=== PATIENT | female | born 1970 | race American Indian/Alaskan Native ===

== ENCOUNTER 2016-05-02 08:00 | Inpatient (IN) | payer OTHER ==
--- NOTE | 2016-05-04 11:49 | HP ---
PREOPERATIVE HISTORY AND PHYSICAL: DATE OF ADMISSION: 05/16/16 This patient is scheduled for AA admission by Dr. Mercado on 05/16/16. DATE OF EXAM: 05/03/16 ATTENDING SURGEON: Dr. Aleksey Mercado (dictated by Ngoc Amin NP). CHIEF COMPLAINT: Morbid obesity. HISTORY OF PRESENT ILLNESS: The patient is a 45-year-old female with a body mass index of 40.3. 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 She lost 13 pounds during the 6 months medically supervised weight loss and has completed all of the necessary preoperative diagnostic evaluations and testing and has been deemed an appropriate candidate by Dr. Mercado to undergo laparoscopic sleeve gastrectomy. Dr. Mercado described the nature of the surgical procedure, the expected results of the surgery, the relevant risks, benefits, and alternatives, and today, I reviewed the typical postoperative care and recovery including compliance with the postoperative stages of the diet, exercise, vitamin and mineral supplementation and followup visits. The patient has had a chance to ask questions and stated that she understands the information and is satisfied with the answers given to her questions. She will sign surgical consent on the day of surgery. 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 OB HISTORY: 2, para 2. Her menstrual periods are regular and she is status post tubal ligation. MEDICATIONS: 1. Hydrochlorothiazide 25 mg p.o. daily in the morning. 2. Tramadol ER 100 mg p.o. daily in the morning. 3. Tramadol 50 mg 1 table q.6 p.r.n. breakthrough pain. 4. Losartan 25 mg q.i.d. she typically takes one in the morning, one at noon, one at 3 p.m. and one at bedtime. 5. Simvastatin 20 mg p.o. daily. 6. Cymbalta 90 mg p.o. daily in the evening. 7. Buspirone 10 mg daily at 3 p.m. 8. Diltiazem ER 180 mg daily at bedtime. 9. Metaxalone 800 mg p.r.n. back spasms. 10. Tylenol 500 mg p.r.n. pain. She avoids NSAIDs secondary to the Fabry disease. ALLERGIES: LISINOPRIL caused cough, LYRICA caused temporary memory loss, BEEF HEPARIN caused hives, but she can tolerate pork heparin; NONSTEROIDAL ANTI- INFLAMMATORY DRUGS are avoided secondary to the Fabry disease, but she can use Tylenol. FAMILY HISTORY: Mother age 53 with breast cancer and was described as obese; father age 61 described as obese with heart disease. She has 2 brothers both described as normal weight, one brother has rheumatoid arthritis with severe associated deformities; she has 2 sisters both described as obese. No known anesthesia complications, bleeding tendencies or clotting disorders; she states that her family members will undergo genetic testing for Fabry disease. SOCIAL HISTORY: She is and has 2 biological children ages 26 and 21; she adopted 2 great nieces and 1 great nephew, the children are 7, 5, and 2.5; she is a axym-uc-axew mom; she has never been a smoker and rarely drinks alcohol. 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 Santillan for Cardiology and has been cleared to proceed with the bariatric surgery, please see Dr. Santillan's attached consultation note for any other details. Constitutional: She reports fatigue and chronic back pain. Cardiovascular: She denies any chest pain. She denies any history of deep vein thrombosis; she had a pulmonary embolism 21 years ago possibly related to oral contraceptives; she underwent a stress echocardiogram in 2016, which was negative for ischemia; she has never had any unusual bleeding and has never received a blood transfusion. Respiratory: She has sleep apnea and uses APAP. She denies any previous anesthesia complications. Gastrointestinal: She has a history of acid reflux and underwent upper GI series, which did reveal a small amount of acid reflux, but no esophagitis; gallbladder ultrasound was negative for cholelithiasis and positive for hepatic steatosis. 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 Musculoskeletal: She has chronic back pain and sciatic pain and pain in her fingertips and toes and cold feet. She states that physical limitations related to her obesity include back pain and hip pain. She is followed at [facility] for Worker's Comp injury associated with the chronic back pain and her tramadol is prescribed through the pain clinic. She is followed by Dr. Jacqui Cosme, who is a genetic specialist in [place] and is also followed by a patient advocate for her Fabrazyme infusions; the patient advocate works with [employer]. Her infusions are administered at [facility] every 2 weeks. PHYSICAL EXAMINATION GENERAL SURVEY: The patient is a 45-year-old obese female in no acute distress. VITAL SIGNS: Height 64 inches, weight 235 pounds, body mass index 40.3, blood pressure 134/78, pulse 72 and regular, respiratory rate 16, temperature 97.9, tympanic. HEENT: Benign. NECK: Supple. No cervical lymphadenopathy. No carotid bruits. No thyromegaly. LUNGS: Breath sounds bilaterally clear and equal. HEART: Regular rate and rhythm. No murmurs or rubs appreciated. ABDOMEN: Active bowel sounds. Obese, soft, nondistended, and nontender throughout. No obvious masses, organomegaly, or evidence of ventral hernia. No skin fold rashes. PELVIC AND RECTAL: Exams deferred. BACK: No CVA tenderness. EXTREMITIES: Warm without edema or skin ulceration. NEUROLOGIC: Alert and oriented x3, steady gait. SKIN: Warm, dry, intact. IMPRESSION: 1. Morbid obesity. 2. Sleep apnea requiring to use of APAP. 3. Fabry's disease. 4. Hypertension. 5. Hypercholesterolemia. 6. Chronic back pain. PLAN: AA admission to Dr. Mercado' service for laparoscopic sleeve gastrectomy on 05/16/16. APOLINAR AMIN NP CC: Dr. [facility]; [facility] in [place], [place]; Dr. Santillan* [id number]/CPS #: [id number] [facility]OSPITALJessie
[2016-05-16] MEDS ORDERED: Famotidine IV* 10 MG/ML 2 ML (20 mg) IV ONE (06:00)
[2016-05-16] MEDS ORDERED: Buffered Lidocaine 1% SYRIN* 3 ML/SYR SYRINGE INTRADERM ONE (06:00)
[2016-05-16] MEDS ORDERED: Famotidine IV* 10 MG/ML 2 ML (20 mg) ONE (07:11)
[2016-05-16] MEDS ORDERED: ceFAZolin 1 GM in Dextrose (*) 1 GM/50 ML BAG IVPB ONE (07:11)
[2016-05-16] MEDS ORDERED: ceFAZolin 2 GM PREMIX(*) 2 GM/50 ML BAG IVPB ONE (07:12)
[2016-05-16] MEDS ORDERED: Clindamycin 900 MG IVPREMIX(* 900 MG/50 ML SDV IV ONE (07:12)
[2016-05-16] MEDS ORDERED: Bupivacaine 0.5% SDV PF* 30 ML VIAL ONE (07:33)
[2016-05-16] MEDS ORDERED: Bupivacaine 0.5% W/EPI SDV* 30 ML VIAL ONE (07:34)
[2016-05-16] MEDS ORDERED: Heparin VIAL(*) 5000 UNITS/ML VIAL (FIVE THOUSAND) ONE (07:43)
[2016-05-16] MEDS ORDERED: Atracurium* 10 MG/ML 10 ML VIAL ONE (08:32)
[2016-05-16] MEDS ORDERED: Morphine INJ* 10 MG/ML 1 ML SYRINGE ONE ×2 (08:32→11:28)
[2016-05-16] MEDS ORDERED: fentaNYL* 50 MCG/ML 2 ML VIAL (100 MCG VIAL) ONE ×2 (08:32→11:28)
[2016-05-16] MEDS ORDERED: KETAMINE HCL* 50 MG/ML 10 ML VIAL ONE (08:33)
[2016-05-16] MEDS ORDERED: Midazolam* 1 MG/ML 5 ML VIAL (5 MG) ONE (08:33)
[2016-05-16 08:34] LABS: Hematocrit 42 % (35-47); Hemoglobin 14.3 g/dl (12.0-16.0); Mean Corpuscular HGB Conc 34 g/dl (31-36); Mean Corpuscular Hemoglobin 27 pg (27-31); Mean Corpuscular Volume 80 fL (80-97); Mean Platelet Volume 11 um3 (7.4-10.4); Red Cell Distribution Width 14 % (10.5-15); White Blood Count 10.1 10^3/ul (3.5-10.8)
[2016-05-16] MEDS ORDERED: PROCHLORPERAZINE INJ 5 MG/ML 2 ML VIAL IV PRN (10:16)
[2016-05-16] MEDS ORDERED: Lidocaine 2% PF* 5 ML VIAL ONE (10:26)
[2016-05-16] MEDS ORDERED: Propofol* 10 MG/ML 20 ML BTL IV PUSH ONE (10:26)
[2016-05-16] MEDS ORDERED: Glycopyrrolate IV* 0.2 MG/ML 1 ML VIAL ONE (10:26)
[2016-05-16] MEDS ORDERED: Ondansetron INJ* 2 MG/ML VIAL ONE (10:26)
[2016-05-16] MEDS ORDERED: Dexamethasone IV* 4 MG/ML 1 ML (4 MG) ONE (10:26)
[2016-05-16] MEDS ORDERED: Neostigmine Methylsulfate* 2 MG/2 ML SYRINGE ONE (10:26)
[2016-05-16] MEDS ORDERED: Scopolamine 1.5 mg* PATCH ONE (10:27)
[2016-05-16] MEDS ORDERED: Phenylephrine INJ* 10 MG/ML 1 ML VIAL (10 MG) ONE (10:27)
[2016-05-16] MEDS ORDERED: HYDROmorphone* 1 MG/ML 1 ML SYR IV PRN (11:10)
[2016-05-16] MEDS ORDERED: Ondansetron INJ* 2 MG/ML VIAL IV PRN (11:10)
[2016-05-16] MEDS ORDERED: Acetaminophen ADULT LIQ* 650 MG/20.3 ML UDC PO PRN (11:10)
--- NOTE | 2016-05-16 11:26 | PN ---
Progress Note - Progress Note Note: Brief Operative Note: Pre and postop Dx: Morbid obesity Procedure: Laparoscopic sleeve gastrectomy Anesthesia: GET Surgeon: Rogelio Asst: LUMA Owusu EBL: none Fluids: 1700 ml RL Drains: none Specimen: portion stomach Findings: dictated
[2016-05-16] MEDS ORDERED: Ketorolac INJ* 30 MG/ML 1 ML VIAL ONE (11:28)
[2016-05-16] MEDS: Ketorolac INJ* 30 MG/ML 1 ML VIAL IV PRN ×2 (11:33→18:06)
[2016-05-16] MEDS: fentaNYL* 50 MCG/ML 2 ML VIAL (100 MCG VIAL) IV PRN ×2 (11:34→11:53)
[2016-05-16] MEDS: Morphine INJ* 2 MG/ML 1 ML SYRINGE IV PRN ×2 (11:39→11:54)
[2016-05-16] MEDS ORDERED: Metoprolol Tartrate IV* 1 MG/ML 5 ML VIAL IV PRN (13:31)
[2016-05-16] MEDS ORDERED: Metoprolol Tartrate IV* 1 MG/ML 5 ML VIAL ONE (14:29)
[2016-05-16] MEDS ORDERED: HYDROmorphone* 1 MG/ML 1 ML SYR ONE (14:29)
[2016-05-16] MEDS: HYDROmorphone* 1 MG/ML 1 ML SYR IV PRN ×2 (14:34→21:18)
[2016-05-16] MEDS: Heparin VIAL(*) 5000 UNITS/ML VIAL (FIVE THOUSAND) SUBCUT SCH (21:18)
[2016-05-17] MEDS: FAMOTIDINE IVPB SCH ×2 (02:24→14:05)
[2016-05-17] MEDS: NS 0.9% IVPB SCH ×2 (02:24→14:05)
[2016-05-17] MEDS: HYDROmorphone* 1 MG/ML 1 ML SYR IV PRN ×4 (02:28→21:28)
[2016-05-17] MEDS: diPHENhydraMINE IV* 50 MG/ML 1 ml VIAL (BENADRYL) SLOW PUSH PRN (04:16)
[2016-05-17] MEDS: Heparin VIAL(*) 5000 UNITS/ML VIAL (FIVE THOUSAND) SUBCUT SCH ×3 (05:24→21:28)
--- NOTE | 2016-05-17 10:33 | PN ---
Progress Note - Progress Note SOAP: Subjective: Started drinking and feels good. Pain in RUQ incision is well controlled. No N /V/GERD. Objective: Vital Signs Temp 98.1 F 05/17/16 08:08 Pulse 83 05/17/16 08:08 Resp 14 05/17/16 10:00 BP 147/75 05/17/16 08:08 Pulse Ox 97 05/17/16 10:00 NAD Abd: dressings c/d/i; soft; ND; mild tenderness. Intake & Output 05/16/16 05/17/16 05/17/16 18:59 06:59 18:59 Intake Total 1700 2106 638 Output Total 325 300 Balance 1700 1781 338 Weight 226 lb 9.6 oz Intake: IV Fluids 1700 2054 638 LR 2054 585 PB - FAMOTIDINE 53 lr 1700 IVPB 52 PB - FAMOTIDINE 52 Oral 0 Output: Urine 325 300 Other: Estimated Void Medium # Voids 1 Assessment: POD#1 s/p LSG. Doing well. Plan: Cont clears. Ambulate. Likely home in AM.
[2016-05-17] MEDS: D5W 1/2 NS KCl 20 Meq 1000 ML* 1,000 ML IV SCH ×2 (11:09→17:53)
[2016-05-17] MEDS: Ketorolac INJ* 30 MG/ML 1 ML VIAL IV PRN (14:02)
[2016-05-17] MEDS: HYDROcodone/ACET. 7.5/325 LIQ* 15 ML UDC PO PRN (17:54)
[2016-05-18] MEDS: D5W 1/2 NS KCl 20 Meq 1000 ML* 1,000 ML IV SCH ×2 (00:22→07:17)
[2016-05-18] MEDS: HYDROmorphone* 1 MG/ML 1 ML SYR IV PRN (01:35)
[2016-05-18] MEDS: diPHENhydraMINE IV* 50 MG/ML 1 ml VIAL (BENADRYL) SLOW PUSH PRN (02:23)
[2016-05-18] MEDS: NS 0.9% IVPB SCH ×2 (02:25→14:04)
[2016-05-18] MEDS: FAMOTIDINE IVPB SCH ×2 (02:25→14:04)
[2016-05-18] MEDS: Heparin VIAL(*) 5000 UNITS/ML VIAL (FIVE THOUSAND) SUBCUT SCH ×2 (05:56→14:04)
[2016-05-18] MEDS: HYDROcodone/ACET. 7.5/325 LIQ* 15 ML UDC PO PRN ×2 (07:10→14:02)
[2016-05-18] MEDS: Ketorolac INJ* 30 MG/ML 1 ML VIAL IV PRN (07:12)
--- NOTE | 2016-05-18 09:30 | PN ---
Progress Note - Progress Note SOAP: Subjective: She felt more pain last night. She is taking po meds and it helps. She had some nausea, no vomiting. She has some GERD. Only taking 3 oz/hr po. Knows she needs to take more. Passing flatus. Voiding well. Objective: Vital Signs Temp 97.7 F 05/18/16 07:36 Pulse 65 05/18/16 07:36 Resp 16 05/18/16 07:36 BP 150/82 05/18/16 07:36 Pulse Ox 97 05/18/16 07:36 NAD Abd: incis c/d/i; no erythema. Soft, tender in RUQ incis. Intake & Output 05/17/16 05/18/16 05/18/16 18:59 06:59 18:59 Intake Total 2173 1071 1054 Output Total 700 625 Balance 4879 595 4041 Intake: IV Fluids 6279 519 6066 D5W 1/2 NS 20 meq KCL 951 998 LR 1735 PB - FAMOTIDINE 108 56 Oral 330 120 Output: Urine 700 625 Assessment: POD#2 s/p LSG. Doing well. Plan: Increase po as tolerated. D/c capnography. Shower. Possible d/c later today or AM depending on progress.
[2016-05-18] MEDS ORDERED: DULoxetine DR CAP* 30 MG CAP.DR PO SCH (10:00)
[2016-05-18] MEDS: Losartan TAB* 25 MG PO SCH ×2 (13:21→17:06)
[2016-05-18] MEDS ORDERED: busPIRone TAB* 10 MG PO SCH (14:00)
--- NOTE | 2016-05-18 15:42 | SURGPN ---
Subjective - Introduction -: Discharge summary will be dictated. Patient will be discharge to home this evening. Doing well, no complaints, ready to go home. - Medications -: Active Medications Generic Name Dose Route Start Last Admin Trade Name Freq PRN Reason Stop Dose Admin Acetaminophen 650 mg 05/16/16 11:10 Tylenol Adult Liq* PO Q6H PRN Temp > 101 F Or Mild Pain Hydrocodone Bitart/Acetaminophen 15 ml 05/17/16 17:03 05/18/16 14:02 Nortab 7.5/325 Liq* PO 15 ml Q6H PRN Administration PAIN Buspirone HCl 10 mg 05/18/16 14:00 05/18/16 13:22 Buspar Tab* PO 10 mg TID CORINNE Administration Diphenhydramine HCl 25 mg 05/16/16 11:10 05/18/16 02:23 Benadryl Iv* SLOW PUSH 25 mg Q6H PRN Administration ITCHING Duloxetine HCl 90 mg 05/18/16 10:00 05/18/16 10:31 Cymbalta Cap* PO 90 mg DAILY CORINNE Administration Heparin Sodium (Porcine) 5,000 units 05/16/16 22:00 05/18/16 14:04 Heparin Vial(*) SUBCUT 5,000 units Q8HR CORINNE Administration Hydromorphone HCl 0.5 mg 05/16/16 11:10 Dilaudid Iv* IV Q3H PRN PAIN - MODERATE Hydromorphone HCl 1 mg 05/16/16 11:10 05/18/16 01:35 Dilaudid Iv* IV 1 mg Q3H PRN Administration PAIN - SEVERE Famotidine 20 mg/ Sodium 52 mls @ 208 mls/hr 05/17/16 02:30 05/18/16 14:04 Chloride IVPB 208 mls/hr 0230,1430 CORINNE Administration Potassium Chloride/Dextrose 1,000 mls @ 150 mls/hr 05/17/16 11:15 05/18/16 07 :17 D5w 1/2 Ns Kcl 20 Meq 1000 Ml* IV 150 mls/hr .PER RATE CORINNE Administration Losartan Potassium 100 mg 05/18/16 13:00 05/18/16 13:21 Cozaar Tab* PO 25 mg QID CORINNE Administration Metoprolol Tartrate 5 mg 05/16/16 13:31 05/16/16 14:34 Lopressor Iv* IV 5 mg Q6H PRN Administration BP Sys>150 or hellen>90 Ondansetron HCl 4 mg 05/16/16 11:10 05/16/16 18:06 Zofran Inj* IV 4 mg Q6H PRN Administration NAUSEA/VOMITING Pharmacy Profile Note 1 note 05/19/16 10:17 Scopolomine Patch Remove* PATCH OFF 05/19/16 10:18 Q72H ONE Objective - Objective -: Awake and alert, in NAD. - Intake and Output -: Intake & Output 05/16/16 05/17/16 05/18/16 05/19/16 06:59 06:59 06:59 06:59 Intake Total 3806 3244 2394 Output Total 325 1325 800 Balance 3481 1919 1594 Weight 226 lb 9.6 oz Intake: IV Fluids 3754 2794 2004 D5W 1/2 NS 20 meq KCL 951 1948 LR 2054 1735 PB - FAMOTIDINE 108 56 lr 1700 IVPB 52 PB - FAMOTIDINE 52 Oral 0 450 390 Output: Urine 325 1325 800 Other: Estimated Void Medium # Voids 1 ADLs: Meal Record Start: 05/16/16 14: 16 Freq: Status: Active Created 05/16/16 14:16 [id number] (Rec: 05/16/16 14:16 [id number] SSU-M08) Document 05/16/16 18:56 [id number] (Rec: 05/16/16 18:56 [id number] SSU-C05) Document 05/17/16 14:29 [id number] (Rec: 05/17/16 14:29 [id number] SSU-C11) Document 05/18/16 13:48 [id number] (Rec: 05/18/16 13:49 [id number] SSU-C01) Intake and Output Start: 05/16/16 14: 16 Freq: DAILY@0600,1400,2200 Status: Active Created 05/16/16 14:16 [id number] (Rec: 05/16/16 14:16 [id number] SSU-M08) Document 05/16/16 22:00 [id number] (Rec: 05/16/16 22:15 [id number] SSU-C01) Document 05/17/16 02:33 [id number] (Rec: 05/17/16 02:33 [id number] ICU-M18) Document 05/17/16 05:24 [id number] (Rec: 05/17/16 05:25 [id number] ICU-M18) Document 05/17/16 14:00 [id number] (Rec: 05/17/16 14:12 [id number] ICU-M18) Document 05/17/16 18:36 [id number] (Rec: 05/17/16 18:36 [id number] ICU-M18) Document 05/17/16 22:00 [id number] (Rec: 05/17/16 23:20 [id number] SSU-M03) Document 05/17/16 23:42 [id number] (Rec: 05/17/16 23:42 [id number] SSU-C03) Document 05/18/16 01:18 [id number] (Rec: 05/18/16 01:19 [id number] SSU-C03) Document 05/18/16 05:29 [id number] (Rec: 05/18/16 05:29 [id number] SSU-C03) Document 05/18/16 10:34 [id number] (Rec: 05/18/16 10:34 [id number] SSU-M05) Document 05/18/16 13:59 [id number] (Rec: 05/18/16 14:00 [id number] SSU-M05) Surgical Physical Exam - Comments -: Vitals reviewed, afebrile. Abdomen soft, NT and ND. Incisions C/D/I. Assessment and Plan - Assessment -: A 45 y/o female s/p laparoscopic sleeve gasterectomy. - Plan Surgical Plan of Care: Discontinue IV, Discharge
[2016-05-18 17:51] VITALS: BP 147/85
--- NOTE | 2016-05-19 05:36 | DS ---
DISCHARGE SUMMARY: DATE OF ADMISSION: 05/16/16 DATE OF DISCHARGE: 05/18/16 PATIENT OF: Dr. Aleksey Mercado. ADMISSION DIAGNOSIS: Morbid obesity. DISCHARGE DIAGNOSIS: Morbid obesity. ADMITTING PHYSICIAN: Dr. Aleksey Mercado. CONSULTATIONS: None. PROCEDURES: Laparoscopic sleeve gastrectomy on 05/16/16. HISTORY OF PRESENT ILLNESS: Mrs. Marquez is a pleasant 45-year-old female who was seen in the office in consultation to discuss weight loss surgery. She noted multiple attempts to lose weight with diet and exercise in the past, but that failed to maintain her weight loss. She had an extensive workup including psych eval and sleep study and was found to be a good candidate to undergo a sleeve gastrectomy by Dr. Mercado. The patient had necessary clearance since she was seen in the office for consultation and she was scheduled to have the surgery. HOSPITAL COURSE: The patient was admitted on the same day in anticipation for surgery. She had a laparoscopic sleeve gastrectomy on 05/16/16 that was eventually unremarkable. After recovery, she went to surgical floor for observation overnight. She did extremely well with only mild incisional discomfort that was well tolerated using p.o. meds. She had some nausea on the patient's postoperative day #1, but no vomiting and she also had a history of GERD. She was able to maintain 3 ounce per hour p.o. intake and she was encouraged to have more. She was passing a little flatus on the second day postop and she remained stable. Her intake and output was essentially within goal. She remained afebrile and her exam was very benign and she was ready to be discharged to home on the second day postoperatively. DISCHARGE MEDICATIONS: 1. In addition to Lortab Elixir 1 tablespoon as needed for pain. 2. She also has been on diltiazem 180 mg p.o. daily. 3. Cymbalta 90 mg p.o. daily. 4. Hydrochlorothiazide 25 mg p.o. daily. 5. Losartan 100/25 mg p.o. 4 times a day. 6. Simvastatin 20 mg p.o. daily. 7. Tramadol 50 mg p.o. daily. 8. BuSpar 10 mg p.o. t.i.d.. PROBLEM LIST: Morbid obesity, status post laparoscopic sleeve gastrectomy on . LUMA MEDINA [id number]/[facility] #: [id number] [facility]ITALJessie
[2016-05-19] MEDS ORDERED: Scopolomine PATCH Remove* 1 NOTE MISC PATCH OFF ONE (10:17)
== END 2016-05-18 17:50 | disposition home or self-care (01) | DRG 403 ==
LOC: AA 05-16 07:37 → SSU 05-16 14:19
PROVIDERS: ADMIT Surgery; ATTEND Surgery
PROC: 0DB64Z3 Excision of Stomach, Percutaneous Endoscopic Approach, Vertical (ICD-10-PCS; principal; 2016-05-16 08:45)
DX: E66.01 Morbid (severe) obesity due to excess calories (principal); I42.9 Cardiomyopathy, unspecified; K21.9 Gastro-esophageal reflux disease without esophagitis; R11.0 Nausea; R14.3 Flatulence; Z68.41 Body mass index [BMI] 40.0-44.9, adult; I10 Essential (primary) hypertension; G47.30 Sleep apnea, unspecified; E78.00 Pure hypercholesterolemia, unspecified; G89.29 Other chronic pain; M54.30 Sciatica, unspecified side; E75.21 Fabry (-Anderson) disease; F41.9 Anxiety disorder, unspecified; F32.9 Major depressive disorder, single episode, unspecified; Z86.711 Personal history of pulmonary embolism; Z98.51 Tubal ligation status; Z88.8 Allergy status to other drugs, medicaments and biological substances; Z91.018 Allergy to other foods; Z82.49 Family history of ischemic heart disease and other diseases of the circulatory system; Z80.3 Family history of malignant neoplasm of breast; Z82.61 Family history of arthritis; Z86.73 Personal history of transient ischemic attack (TIA), and cerebral infarction without residual deficits; M54.9 Dorsalgia, unspecified
CPT/HCPCS: 36415; 85025; 88307; A9270-GY; J0690; J1100; J1170; J1200; J1644; J1885; J2250; J2270; J2405; J2704; J3010